=== PATIENT | male | born 2000 | race Caucasian/White ===

== ENCOUNTER 2022-11-04 10:06 | Emergency (ER) | payer OTHER ==
[2022-11-04 10:18] VITALS: BP 142/93; PULSE 73; RESP 18; TEMP 97; BMI 25.3
== END 2022-11-04 11:33 | disposition home or self-care (01) ==
LOC: FER 10:06
DX: M25.561 Pain in right knee (principal); S80.211A Abrasion, right knee, initial encounter; W01.0XXA Fall on same level from slipping, tripping and stumbling without subsequent striking against object, initial encounter; W22.8XXA Striking against or struck by other objects, initial encounter
CPT/HCPCS: 73562-TC-RT-FY; 99283-25

== ENCOUNTER 2022-12-10 12:33 | Emergency (ER) | payer OTHER ==
[2022-12-10 13:01] VITALS: BP 140/80; PULSE 86; RESP 18; TEMP 98.7; BMI 28.6
[2022-12-10] MEDS ORDERED: ACETAMINOPHEN 500 MG TABLET (FP) PO ONE (13:01)
[2022-12-10] MEDS ORDERED: ACETAMINOPHEN 500 MG TABLET (FP) ONE (13:05)
== END 2022-12-10 13:30 | disposition home or self-care (01) ==
LOC: FER 12:33
DX: S09.90XA Unspecified injury of head, initial encounter (principal); R42 Dizziness and giddiness; R11.0 Nausea; W50.0XXA Accidental hit or strike by another person, initial encounter; Y99.0 Civilian activity done for income or pay
CPT/HCPCS: 99283-25

== ENCOUNTER 2023-07-29 14:13 | Emergency (ER) | payer OTHER ==
[2023-07-29 14:25] VITALS: BP 171/98; PULSE 99; RESP 18; TEMP 98.2; BMI 25.4
[2023-07-29] MEDS ORDERED: IBUPROFEN 400 MG TABLET (FP) PO ONE (14:55)
[2023-07-29] MEDS: IBUPROFEN 400 MG TABLET (FP) PO ONE (14:56)
== END 2023-07-29 15:15 | disposition home or self-care (01) ==
LOC: FER 14:13
DX: S39.012A Strain of muscle, fascia and tendon of lower back, initial encounter (principal); S09.90XA Unspecified injury of head, initial encounter; V43.62XA Car passenger injured in collision with other type car in traffic accident, initial encounter; Y92.410 Unspecified street and highway as the place of occurrence of the external cause
CPT/HCPCS: 99283-25

== ENCOUNTER 2023-09-07 11:52 | Emergency (ER) | payer OTHER, BC ==
[2023-09-07 12:02] VITALS: BP 155/104; PULSE 102; RESP 18; TEMP 98.3; BMI 25.4
== END 2023-09-07 13:09 | disposition home or self-care (01) ==
LOC: FER 11:52
DX: S46.912A Strain of unspecified muscle, fascia and tendon at shoulder and upper arm level, left arm, initial encounter (principal); S09.90XA Unspecified injury of head, initial encounter; X50.1XXA Overexertion from prolonged static or awkward postures, initial encounter; Y35.811A Legal intervention involving manhandling, law enforcement official injured, initial encounter
CPT/HCPCS: 73030-TC-LT-FY; 99283-25

== ENCOUNTER 2024-01-16 14:05 | Emergency (ER) | payer OTHER ==
[2024-01-16 14:57] VITALS: BP 157/86; PULSE 100; RESP 18; TEMP 98.2; BMI 27.0
[2024-01-16 15:34] LABS: HEMATOCRIT 44.8 % (35.4-49); HEMOGLOBIN 15.7 G/dL (11.7-16.9); MCH 31.6 pg (25.7-33.7); MEAN CELL VOLUME 90.3 fl (80-96); MEAN PLT VOLUME 8.9 fl (7.5-11.1); PLATELET COUNT 274.6 10^3/uL (134-434); RBC 4.96 10^6/uL (4.00-5.60); RDW 12.7 % (11.9-15.9); WHITE BLOOD COUNT 7.1 10^3/uL (4.0-10.8)
[2024-01-16 15:50] LABS: ALBUMIN 4.9 g/dl (3.4-5.0); BILIRUBIN,TOTAL 0.7 mg/dl (0.2-1); CALCIUM 10.3 mg/dl (8.5-10.1); CREATININE 1.1 mg/dl (0.6-1.3); POTASSIUM 3.6 mmol/L (3.5-5.1)
[2024-01-16 17:11] LABS: PLATELET ESTIMATE ADEQUATE
== END 2024-01-16 16:34 | disposition home or self-care (01) ==
LOC: FER 14:05
DX: R42 Dizziness and giddiness (principal); R55 Syncope and collapse; F41.9 Anxiety disorder, unspecified
CPT/HCPCS: 36415; 80053; 85027; 93005; 99284-25